=== PATIENT | male | born 1945 | race Caucasian/White ===

== ENCOUNTER 2017-09-01 08:15 | Day surgery (SDC) | payer MEDICARE, BC ==
[2017-09-01] MEDS ORDERED: Lactated Ringers 1,000 ML IV SCH (09:00)
[2017-09-01] MEDS ORDERED: Midazolam 1 MG/ML 2 ML SDV ONE (09:50)
[2017-09-01] MEDS ORDERED: fentaNYL 100 MCG/2 ML SDV ONE (09:50)
[2017-09-01] MEDS ORDERED: Propofol 200 MG/20 ML SDV ONE (09:50)
[2017-09-01] MEDS: ceFAZolin 2 GM in Premix Bag 1 BAG IV ONE ×2 (10:09→12:17)
[2017-09-01 11:32] VITALS: BP 119/70
--- NOTE | 2017-09-02 08:33 | OR ---
DATE OF PROCEDURE: 09/01/2017 PROCEDURE: Colonoscopy. FINDINGS: 1. Diverticulosis, mild. 2. Descending colon polyp, approximately 5 mm, completely removed using cold biopsy forceps. COMPLICATIONS: None. GRANULATOR: None. ANESTHESIA: MAC. PREOPERATIVE DIAGNOSIS: Screening colonoscopy. POSTOPERATIVE DIAGNOSIS: Screening colonoscopy. RISKS: Risks, benefits, alternatives, and limitations including but not limited to infection, bleeding, or perforation explained to the patient, who wished to proceed. PROCEDURE IN DETAIL: The patient was placed in left lateral decubitus position. Digital rectal exam was performed without abnormality. The scope was introduced and advanced atraumatically to the ileocecal valve. The scope was brought back through the ascending, transverse, descending colon and retroflexed. The aforementioned polyp was identified and completely removed. The diverticulosis was described as mild to moderate. The small polyp was identified and completely removed. No abnormalities on retroflex. The patient tolerated the procedure well. Josiah Shrestha MD /[id number]
== END 2017-09-01 11:35 | disposition home or self-care (01) ==
LOC: JP.SDS 08:15
PROVIDERS: ATTEND Surgery
DX: Z12.11 Encounter for screening for malignant neoplasm of colon (principal); K63.5 Polyp of colon; K57.30 Diverticulosis of large intestine without perforation or abscess without bleeding; I10 Essential (primary) hypertension; E66.9 Obesity, unspecified; Z86.010 Personal history of colon polyps
CPT/HCPCS: 45380; 88305; J0690; J2250; J2704; J3010; J7120